=== PATIENT | female | born 1955 | race Caucasian/White ===

== ENCOUNTER 2018-07-16 19:38 | Emergency (ER) | END 2018-07-16 23:50 | disposition home or self-care (01) ==

== ENCOUNTER 2018-10-17 11:49 | Emergency (ER) | payer BC, MEDICAID ==
[~2018-10-17] VITALS: Ht 154.9 cm; Wt 88.0 kg
[~2018-10-17 11:49] MED LIST: ADV25050 INHALATION; ASPI-903 PO; ATEN100T PO; HYDR-3980 PO; HYDR-4011 PO; LEVO25TA6 PO; LOSA25TA2 PO; ONDA4TAB14 PO
[2018-10-17 11:53] VITALS: Ht 154.9 cm; Wt 88.0 kg
[2018-10-17] MEDS ORDERED: HYDROmorphONE 1 MG/ML SYG IV STA (13:02)
[2018-10-17] MEDS ORDERED: ONDANSETRON 4 MG INJ IV STA (13:02)
--- NOTE | 2018-10-17 13:24 | ERD ---
ER Documentation Chief Complaint Chief Complaint ruq pain with radiaiting pain to the back since last night HPI This is 63-year-old female who has a history of liver cirrhosis and pancreatic cyst with gallbladder removal complaining of right upper quadrant pain for 1 day that is exactly like prior gallstone pain. The pain is dull and occurs after eating and radiates to the right back. No chest pain or shortness of breath no nausea vomiting diarrhea. ROS All systems reviewed and are negative except as per history of present illness. Medications Home Meds Reported Medications Glimepiride* (Glimepiride*) 2 Mg Tablet, 2 MG PO WITH BREAKFAST, TAB 10/17/18 Amlodipine Besylate* (Norvasc*) 5 Mg Tablet, 5 MG PO DAILY, TAB 10/17/18 Propranolol Hcl* (Propranolol Hcl*) 20 Mg Tablet, 20 MG PO BID, TAB 10/17/18 Discontinued Reported Medications Atenolol* (Atenolol*) 100 Mg Tablet, 100 MG PO DAILY, TAB 08/09/14 Levothyroxine Sodium* (Levothyroxine Sodium*) 25 Mcg Tablet, 25 MCG PO DAILY, TAB 08/09/14 Discontinued Scripts Ondansetron (Ondansetron Odt) 4 Mg Tab.rapdis, 4 MG PO Q6H PRN for NAUSEA AND/OR VOMITING, #10 TAB Prov:EMELIA BUTTS MD 07/16/18 Hydrocodone/Acetaminophen ([place] 10-325 Tablet) 1 Each Tablet, 1 TAB PO Q6H PRN for PAIN, #7 TAB Prov:EMELIA BUTTS MD 07/16/18 Salmeterol Xinaf/Fluticasone* (Advair*) 250-50 Diskus Inhaler, 1 INH INHALATION BID, #1 INHALER Prov:BENITEZ VALVERDE [employer] 04/23/16 Hydrocodone/Acetaminophen ([place] 5-325 Tablet) 1 Each Tablet, 1 EACH PO Q4H for PAIN, #30 TAB Prov:BENITEZ VALVERDE [employer] 04/23/16 Aspirin* (Aspirin* Chew) 81 Mg Tab.chew, 81 MG PO DAILY for 30 Days, TAB.CHEW Prov:BENITEZ VALVERDE [employer] 04/23/16 Losartan Potassium* (Cozaar*) 25 Mg Tablet, 25 MG PO BID for 30 Days, TAB Prov:BENITEZ VALVERDE V. SONIA 04/23/16 Allergies Allergies: Coded Allergies: No Known Allergy (Unverified , 10/17/18) PMhx/Soc Anesthesia Reaction: No Hx Neurological Disorder: No Hx Respiratory Disorders: No Hx Cardiac Disorders: Yes (HTN) Hx Psychiatric Problems: No Hx Miscellaneous Medical Probl: Yes (THYROID) Hx Alcohol Use: No Hx Substance Use: No Hx Tobacco Use: No FmHx Family History: No coronary disease Physical Exam Vitals Vital Signs Date Temp Pulse Resp B/P (MAP) Pulse Ox O2 O2 Flow FiO2 Time Delivery Rate 10/17/18 69 12 103/60 97 Room Air 15:13 (74) 10/17/18 98.2 82 18 139/69 99 Room Air 13:10 (92) 10/17/18 98.6 99 18 174/84 99 11:53 (114) Physical Exam Const: Well-developed, well-nourished Head: Atraumatic, normocephalic Eyes: Normal Conjunctiva, PERRLA, EOMI, normal sclera, no nystagmus ENT: Normal External Ears, Nose and Mouth, moist mucus membranes. Neck: Full range of motion. No meningismus, no lymphadenopathy. Resp: Clear to auscultation bilaterally, no wheezing, rhonchi, rales Cardio: Regular rate and rhythm, no murmurs, S1 S2 present Abd: Soft, moderate right upper quadrant tenderness non distended. Normal bowel sounds, no guarding or rebound, no pulsitile abdominal masses or bruits Skin: No petechiae or rashes, no ecchymosis , no maculopapular rash Back: No midline or flank tenderness Ext: No cyanosis, or edema, FROM x 4, normal inspection, neurovascularly intact x 4 Neur: Awake and alert, STR 5/5 x 4, sensation intact x 4, no focal findings, cerebellum intact Psych: Normal Mood and Affect Result Diagram: 10/17/18 1311 10/17/18 1311 Results 24 hrs Laboratory Tests Test 10/17/18 13:11 White Blood Count 4.9 10^3/ul Red Blood Count 4.33 10^6/ul Hemoglobin 13.5 g/dl Hematocrit 40.2 % Mean Corpuscular Volume 92.8 fl Mean Corpuscular Hemoglobin 31.2 pg Mean Corpuscular Hemoglobin Concent 33.6 g/dl Red Cell Distribution Width 13.8 % Platelet Count 70 10^3/UL Mean Platelet Volume 11.6 fl Immature Granulocytes % 0.400 % Neutrophils % 49.8 % Lymphocytes % 37.7 % Monocytes % 9.5 % Eosinophils % 1.8 % Basophils % 0.8 % Nucleated Red Blood Cells % 0.0 /100WBC Immature Granulocytes # 0.020 10^3/ul Neutrophils # 2.5 10^3/ul Lymphocytes # 1.9 10^3/ul Monocytes # 0.5 10^3/ul Eosinophils # 0.1 10^3/ul Basophils # 0.0 10^3/ul Nucleated Red Blood Cells # 0.0 10^3/ul Sodium Level 144 mmol/L Potassium Level 3.7 mmol/L Chloride Level 107 mmol/L Carbon Dioxide Level 27 mmol/L Anion Gap 10 Blood Urea Nitrogen 11 mg/dl Creatinine 0.66 mg/dl Est Glomerular Filtrat Rate mL/min > 60 mL/min Glucose Level 93 mg/dl Calcium Level 9.2 mg/dl Total Bilirubin 0.5 mg/dl Direct Bilirubin 0.00 mg/dl Indirect Bilirubin 0.5 mg/dl Aspartate Amino Transf (AST/SGOT) 63 IU/L Alanine Aminotransferase (ALT/SGPT) 50 IU/L Alkaline Phosphatase 94 IU/L Total Protein 8.8 g/dl Albumin 4.1 g/dl Globulin 4.70 g/dl Albumin/Globulin Ratio 0.87 Lipase 330 U/L Current Medications Medications Dose Sig/Mel Start Time Status Last (Trade) Ordered Route PRN Stop Time Admin Dose Reason Admin 1 mg ONCE STAT 10/17/18 DC 10/17/18 Hydromorphone IV 13:02 10/17/18 13:08 HCl 13:04 (Dilaudid) Ondansetron 4 mg ONCE STAT 10/17/18 DC 10/17/18 HCl (Zofran IV 13:02 10/17/18 13:08 Inj) 13:04 Procedures/MDM Ordering MD: JOHAN PIMENTEL DO Location: E/R Room/Bed: PROCEDURE: US Abdomen. CLINICAL INDICATION: abdominal pain TECHNIQUE: Multiple real-time images were acquired of the patient's right upper quadrant abdomen and retroperitoneum utilizing a high resolution transducer. COMPARISON: CT 07/16/2018; US ABDOMEN 04/20/2016 FINDINGS: The study is limited due to the patient's body habitus. The liver demonstrates heterogeneous and coarse echogenicity. The liver is nodular in contour. The liver is normal in size and no focal solid lesions are seen. The liver measures 14 cm in length. The portal vein is patent with normal direction of flow. No intrahepatic biliary dilatation is seen. The patient is status post cholecystectomy. The common bile duct measures 9 mm in maximal dimension. The visualized portions of the pancreas are unremarkable. The tail of the pancreas is not seen. No free fluid is identified. The right kidney is normal in size, and demonstrate normal echogenicity and cortical thickness. The right kidney measures 9.9 cm in long dimension. There is no evidence of hydronephrosis. There are no kidney stones. RPTAT: AA IMPRESSION: Liver cirrhosis. Status post cholecystectomy. Dilated CBD. .Jhony Melissa MD, MD Date Time Electronically viewed and signed by .Jhony Melissa MD, MD on 10/17/2018 14:21 .S/ CC: JOHAN PIMENTEL DO [id number] The patient has stable blood work and ultrasound does not show any intra-hepatic ductal dilation. The patient states her pain is like her gallbladder pain she may have had a retained stone or biliary tree spasm. The patient is feeling better now. I will discharge her home with some [place] and [place]. If she gets worse she will return. Patient feels much better at this time, and vital signs are normal, symptoms have improved. I did give strict instructions to return to the ED if symptoms continue or worsen, patient will otherwise follow-up with primary care physic maria elena. Patient understood instructions and agreed to plan. Disclaimer: Inadvertent spelling and grammatical errors are likely due to EHR/dictation software use and do not reflect on the overall quality of patient care. Also, please note that the electronic time recorded on this note does not necessarily reflect the actual time of the patient encounter. Departure Diagnosis: Primary Impression: Abdominal pain Abdominal location: right upper quadrant Qualified Codes: R10.11 - Right upper quadrant pain Additional Impression: Biliary colic Condition: Stable JOHAN PIMENTEL DO Oct 17, 2018 13:24
[2018-10-17] MEDS ORDERED: PROP20TA4 PO (16:05)
[2018-10-17] MEDS ORDERED: AMLO5TAB4 PO (16:06)
[2018-10-17] MEDS ORDERED: GLIM2TAB PO (16:06)
[2018-10-17] MEDS ORDERED: HYDR-3980 PO (16:29)
[2018-10-17] MEDS ORDERED: DICY10CA40 PO (16:29)
[2018-10-17 16:48] VITALS: BP 99/52; PULSE 71; RESP 15
== END 2018-10-17 16:44 | disposition home or self-care (01) ==
LOC: E/R 11:49
DX: K80.50 Calculus of bile duct without cholangitis or cholecystitis without obstruction (principal); I10 Essential (primary) hypertension
CPT/HCPCS: 36415; 76705; 80053; 83690; 85025; 96374; 96375; 99285; J1170; J2405

== ENCOUNTER 2018-12-09 07:47 | Emergency (ER) | payer OTHER ==
[~2018-12-09] VITALS: Ht 157.5 cm; Wt 88.5 kg
[~2018-12-09 07:47] MED LIST changes: -ADV25050 INHALATION; +AMLO5TAB4 PO; -ASPI-903 PO; -ATEN100T PO; +DICY10CA40 PO; +GLIM2TAB PO; -HYDR-4011 PO; -LEVO25TA6 PO; -LOSA25TA2 PO; -ONDA4TAB14 PO; +PROP20TA4 PO
[2018-12-09 07:53] VITALS: Ht 157.5 cm; Wt 88.5 kg
[2018-12-09] MEDS ORDERED: ONDANSETRON (ODT) 4 MG TAB ODT STA (09:17)
[2018-12-09] MEDS ORDERED: KETOROLAC 30 MG INJ IM STA (09:17)
[2018-12-09] MEDS ORDERED: ONDA4TAB8 PO (09:19)
[2018-12-09] MEDS ORDERED: IBUP-1542 PO (09:19)
[2018-12-09 10:35] VITALS: BP 127/77; PULSE 72; RESP 19
--- NOTE | 2018-12-09 12:36 | ERD ---
ER Documentation Chief Complaint Chief Complaint FEVER , COUGH , SORE THROAT , HEADACHE X 3 DAYS HPI 63-year-old woman complains of nasal congestion, rhinorrhea, sore throat, mild cough, headaches x3 days. She has had some nausea as well but no vomiting or diarrhea, no chest pain or shortness of breath, no dysuria or increased urinary frequency. ROS All systems reviewed and are negative except as per history of present illness. Medications Home Meds Active Scripts Ondansetron Hcl* (Zofran*) 4 Mg Tablet, 4 MG PO Q8H PRN for NAUSEA AND/OR VOMITING, #30 TAB Prov:CELIA HOLLAND MD 12/09/18 Ibuprofen* (Motrin*) 600 Mg Tab, 600 MG PO Q8 PRN for PAIN AND/OR INFLAMMATION, #30 TAB Prov:CELIA HOLLAND MD 12/09/18 Hydrocodone/Acetaminophen ([place] 10-325 Tablet) 1 Each Tablet, 1 TAB PO Q6H PRN for PAIN, #9 TAB Prov:JOHAN PIMENTEL DO 10/17/18 Dicyclomine HCl (Dicyclomine HCl) 10 Mg Capsule, 20 MG PO TID PRN for ABDOMINAL CRAMPING, #20 CAP Prov:JOHAN PIMENTEL DO 10/17/18 Reported Medications Glimepiride* (Glimepiride*) 2 Mg Tablet, 2 MG PO WITH BREAKFAST, TAB 10/17/18 Amlodipine Besylate* (Norvasc*) 5 Mg Tablet, 5 MG PO DAILY, TAB 10/17/18 Propranolol Hcl* (Propranolol Hcl*) 20 Mg Tablet, 20 MG PO BID, TAB 10/17/18 Allergies Allergies: Coded Allergies: No Known Allergy (Unverified , 10/17/18) PMhx/Soc Hypertension, diabetes mellitus Anesthesia Reaction: No Hx Neurological Disorder: No Hx Respiratory Disorders: No Hx Cardiac Disorders: Yes (HTN) Hx Psychiatric Problems: No Hx Miscellaneous Medical Probl: Yes (THYROID, liver cirrhosis, pancreatic cyst) Hx Alcohol Use: No Hx Substance Use: No Hx Tobacco Use: No Smoking Status: Never smoker FmHx Family History: diabetes Physical Exam Vitals Vital Signs Date Temp Pulse Resp B/P (MAP) Pulse Ox O2 O2 Flow FiO2 Time Delivery Rate 12/09/18 98.1 72 19 127/77 99 Room Air 10:35 (94) 12/09/18 98.6 75 18 128/74 97 07:53 (92) Physical Exam GENERAL: Well-developed, well-nourished, well-hydrated, in no apparent distress, looks nontoxic in appearance HEENT: Moist mucous membranes, pink conjunctiva, positive nasal congestion, NEURO: Alert and oriented 3, cranial nerves II through XII intact bilaterally, pupils equal round reactive to light, no focal deficits or facial asymmetry, sensation intact distally Strength 5/5 in upper and lower extremities bilaterally CARDIAC: Regular rate and rhythm, no murmurs rubs or gallops LUNGS: Clear bilaterally no wheezing crackles or stridor ABDOMEN: Soft nontender, no guarding, no rigidity, no rebound, no psoas sign no obturator sign. EXTREMITIES: No clubbing cyanosis or edema, calves are bilaterally symmetrical, no Homans sign, no popliteal cord sign. Distal pulses equal and bilateral PSYCH: Normal affect without agitation or irritability Results 24 hrs Current Medications Medications Dose Sig/Mel Start Time Status Last (Trade) Ordered Route PRN Stop Time Admin Dose Reason Admin Ketorolac 30 mg ONCE STAT 12/09/18 DC 12/09/18 Tromethamine IM 09:17 09:26 (Toradol) 12/09/18 09:18 Ondansetron 4 mg ONCE STAT 12/09/18 DC 12/09/18 HCl (Zofran ODT 09:17 09:25 Odt) 12/09/18 09:18 Procedures/MDM I administered Toradol 30 mg IM x1 and Zofran 4 mg p.o. for her symptoms. Patient has normal vital signs and looks well, I suspect viral URI and will discharge her with prescriptions and recommended follow-up with PMD. Differential diagnoses considered, included but not limited to acute coronary syndrome, pulmonary embolism, aortic dissection, abdominal aortic aneurysm, s epsis, stroke, meningitis, encephalitis, pneumonia, appendicitis, cholecystitis, bowel obstruction, pyelonephritis, nephrolithiasis, cystitis, as well as metabolic, hematologic, and electrolyte abnormalities. As well as abscess, cellulitis, fractures, and dislocations. Patient feels much better at this time, and vital signs are normal, symptoms have improved. I did give strict instructions to return to the ED if symptoms continue or worsen, patient will otherwise follow-up with primary care physician. Patient understood instructions and agreed to plan. Disclaimer: Inadvertent spelling and grammatical errors are likely due to EHR/d ictation software use and do not reflect on the overall quality of patient care. Also, please note that the electronic time recorded on this note does not necessarily reflect the actual time of the patient encounter. Departure Diagnosis: Primary Impression: Viral URI Condition: Good Patient Instructions: Uri, Viral, No Abx (Adult) CELIA HOLLAND MD Dec 09, 2018 12:36
== END 2018-12-09 10:36 | disposition home or self-care (01) ==
LOC: FTE 07:47
DX: J06.9 Acute upper respiratory infection, unspecified (principal); I10 Essential (primary) hypertension; E11.9 Type 2 diabetes mellitus without complications; Z79.84 Long term (current) use of oral hypoglycemic drugs
CPT/HCPCS: 96372; 99284; J1885

== ENCOUNTER 2019-03-24 06:56 | Observation (INO) | payer OTHER ==
[~2019-03-24] VITALS: Ht 154.9 cm; Wt 92.0 kg
[~2019-03-24 06:56] MED LIST changes: +ACET325T33 PO; +ASPI81TA50 PO; +GLIM4TAB PO; +IBUP-1542 PO; +LIOT5TAB3 PO; +LISI-313 PO; +ONDA4TAB8 PO; +POTA20TA96 PO
--- NOTE | 2019-03-24 07:14 | ERD ---
ER Documentation Chief Complaint Chief Complaint cwp, left arm/shoulder pain intermittent since yesterday HPI 63-year-old female history of hypertension. Last cardiac risk stratification was 3 years ago which was negative at the time. Is presenting with 24 hours of chest pain radiating to her arm that began at rest. Pain has been constant symptoms have not been exacerbated by exertion. She does not have any shortness of breath, nausea, vomiting, diarrhea, abdominal discomfort. No recent infections, no dysuria. No respiratory symptoms. Has been compliant with her medications. ROS All systems reviewed and are negative except as per history of present illness. Medications Home Meds Active Scripts Ondansetron Hcl* (Zofran*) 4 Mg Tablet, 4 MG PO Q8H PRN for NAUSEA AND/OR VOMITING, #30 TAB Prov:CELIA HOLLAND MD 12/09/18 Ibuprofen* (Motrin*) 600 Mg Tab, 600 MG PO Q8 PRN for PAIN AND/OR INFLAMMATION, #30 TAB Prov:CELIA HOLLAND MD 12/09/18 Hydrocodone/Acetaminophen ([place] 10-325 Tablet) 1 Each Tablet, 1 TAB PO Q6H PRN for PAIN, #9 TAB Prov:JOHAN PIMENTEL DO 10/17/18 Dicyclomine HCl (Dicyclomine HCl) 10 Mg Capsule, 20 MG PO TID PRN for ABDOMINAL CRAMPING, #20 CAP Prov:JOHAN PIMENTEL DO 10/17/18 Reported Medications Glimepiride* (Glimepiride*) 2 Mg Tablet, 2 MG PO WITH BREAKFAST, TAB 10/17/18 Amlodipine Besylate* (Norvasc*) 5 Mg Tablet, 5 MG PO DAILY, TAB 10/17/18 Propranolol Hcl* (Propranolol Hcl*) 20 Mg Tablet, 20 MG PO BID, TAB 10/17/18 Allergies Allergies: Coded Allergies: No Known Allergy (Unverified , 10/17/18) PMhx/Soc Anesthesia Reaction: No Hx Neurological Disorder: No Hx Respiratory Disorders: No Hx Cardiac Disorders: Yes (HTN) Hx Psychiatric Problems: No Hx Miscellaneous Medical Probl: Yes (THYROID, liver cirrhosis, pancreatic cyst) Hx Alcohol Use: No Hx Substance Use: No Hx Tobacco Use: No Physical Exam Vitals Vital Signs Date Temp Pulse Resp B/P (MAP) Pulse Ox O2 O2 Flow FiO2 Time Delivery Rate 03/24/19 Nasal 07:36 Cannula 03/24/19 98.0 70 18 162/74 99 06:59 (103) Physical Exam Const: Well-appearing Head: Atraumatic Eyes: Normal Conjunctiva ENT: Normal External Ears, Nose and Mouth. Neck: Full range of motion. No meningismus. Resp: Clear to auscultation bilaterally Cardio: Regular rate and rhythm, no murmurs Abd: Soft, non tender, non distended. Normal bowel sounds Skin: No petechiae or rashes Back: No midline or flank tenderness Ext: No cyanosis, or edema Neur: Awake and alert Psych: Normal Mood and Affect Result Diagram: 03/24/1972603/24/19726 Results 24 hrs Laboratory Tests Test 03/24/19 07:27 White Blood Count 6.4 10^3/ul Red Blood Count 4.39 10^6/ul Hemoglobin 13.5 g/dl Hematocrit 41.3 % Mean Corpuscular Volume 94.1 fl Mean Corpuscular Hemoglobin 30.8 pg Mean Corpuscular Hemoglobin Concent 32.7 g/dl Red Cell Distribution Width 13.9 % Platelet Count 80 10^3/UL Mean Platelet Volume 10.3 fl Immature Granulocytes % 0.500 % Neutrophils % 54.5 % Lymphocytes % 32.1 % Monocytes % 9.6 % Eosinophils % 2.5 % Basophils % 0.8 % Nucleated Red Blood Cells % 0.0 /100WBC Immature Granulocytes # 0.030 10^3/ul Neutrophils # 3.5 10^3/ul Lymphocytes # 2.0 10^3/ul Monocytes # 0.6 10^3/ul Eosinophils # 0.2 10^3/ul Basophils # 0.1 10^3/ul Nucleated Red Blood Cells # 0.0 10^3/ul Sodium Level 142 mmol/L Potassium Level 4.0 mmol/L Chloride Level 108 mmol/L Carbon Dioxide Level 28 mmol/L Anion Gap 6 Blood Urea Nitrogen 18 mg/dl Creatinine 0.58 mg/dl Est Glomerular Filtrat Rate mL/min > 60 mL/min Glucose Level 150 mg/dl Calcium Level 9.2 mg/dl Total Bilirubin 0.9 mg/dl Direct Bilirubin 0.00 mg/dl Indirect Bilirubin 0.9 mg/dl Aspartate Amino Transf (AST/SGOT) 49 IU/L Alanine Aminotransferase (ALT/SGPT) 46 IU/L Alkaline Phosphatase 89 IU/L Troponin I < 0.012 ng/ml Total Protein 8.3 g/dl Albumin 3.9 g/dl Globulin 4.40 g/dl Albumin/Globulin Ratio 0.88 Lipase 262 U/L Current Medications Medications Dose Sig/Mel Start Time Status Last (Trade) Ordered Route PRN Stop Time Admin Dose Reason Admin Aspirin 325 mg ONCE STAT 03/24/19 DC 03/24/19 (Aspirin) PO 07:19 07:37 03/24/19 07:20 1 tab Q5M UP TO 3 03/24/19 03/24/19 Nitroglycerin DOSES PRN 07:30 07:37 SL .CHEST (Nitroglyceri PAIN n (Sl Tab) 0.4 Mg) Procedures/MDM 12 lead ECG Time: 704 Rate/Rhythm: Normal Sinus Rhythm at a rate of [66] beats per minute QRS, ST, T-waves: No changes consistent w/ acute ischemia. There is biphasic T waves in leads III and aVF. T wave inversions in leads V2 through V6 these were seen on EKG from 2016 however are now deeper Impression: No evidence of acute ischemia or arrhythmia Chest X-ray 1V Interpreted by me: Soft Tissue: No acute abnormalities Bones: No acute abnormalities Mediastinum/Cardiac Silhouette/Lungs: No acute abnormalities Impression: Normal Chest X-Ray CBC: no evidence of clinically significant leukopenia, leukocytosis, anemia, or thrombocytosis. Does have chronic thrombocytopenia CMP: no evidence of clinically significant acidosis, alkalosis, renal dysfunction, diabetic ketoacidosis, acute liver disease or electrolyte imbalance Lipase: patient's lipase is normal and no indication of pancreatic dysfunction or pancreatitis Troponin: no evidence of acute myocardial injury The patient presents with chest pain and I considered pulmonary embolism, aortic dissection, pneumothorax among other diagnoses. Evaluation for acute coronary syndrome was performed. The HEART score was utilized for risk stratification and found to be 5. Given last cardiac risk stratification was 3 years ago and patient's T wave inversions have worsens we will admit for cardiac risk stratification. Patient is stable. Departure Diagnosis: Primary Impression: CHEST PAIN, UNSPECIFIED Additional Impression: Thrombocytopenia Condition: Stable LAUREL HARRIS MD Mar 24, 2019 07:14
[2019-03-24] MEDS ORDERED: ASPIRIN 325 MG TAB PO STA (07:19)
[2019-03-24] MEDS: NITROGLYCERIN (SL) 0.4 MG TAB SL PRN ×2 (07:37→19:57)
[2019-03-24] MEDS ORDERED: ACETAMINOPHEN 325 MG TAB PO PRN ×2 (09:00)
[2019-03-24] MEDS ORDERED: ONDANSETRON 4 MG INJ IV PRN ×2 (09:00)
[2019-03-24] MEDS ORDERED: BISACODYL (EC) 5 MG TAB PO PRN (09:00)
[2019-03-24] MEDS ORDERED: ZOLPIDEM 5 MG TAB PO PRN (09:00)
[2019-03-24] MEDS ORDERED: DOCUSATE SODIUM 100 MG CAP PO PRN (09:00)
[2019-03-24] MEDS ORDERED: NACL 0.9% 3 ML SYG IV SCH (09:00)
[2019-03-24] MEDS ORDERED: HYDROCODONE/APAP (5/325) TAB PO PRN (09:00)
[2019-03-24] MEDS: FAMOTIDINE 20 MG INJ IV SCH ×2 (09:07→20:22)
[2019-03-24] MEDS: ENOXAPARIN 40 MG/0.4 ML SYG SC SCH (09:08)
[2019-03-24 11:55] VITALS: BP 164/88; PULSE 62
[2019-03-24] MEDS: morphine 2 MG INJ IV PRN (12:05)
[2019-03-24 13:52] VITALS: Ht 154.9 cm; Wt 92.0 kg
[2019-03-24 15:52] VITALS: BP 137/79; PULSE 60; RESP 18
--- NOTE | 2019-03-24 18:36 | HP ---
Date/Time of Note Date/Time of Note DATE: 03/24/19 TIME: 18:35 Assessment/Plan VTE Prophylaxis SCD contraindicated: low risk/ambulating Pharmacological prophylaxis: LMWH Lines/Catheters IV Catheter Type (from Nrsg): Peripheral IV Assessment/Plan Hospital Course Chief complaint Chest pain History present illness 63-year-old female who lives at home was in her usual state of health and had an insidious onset of chest pain at rest. Stated symptoms of numbness of her left fingers/arm. No known aggravating or relieving factors. The pain may have lasted for a few hours. Denies any chest wall injury recent travel or fever. They have had similar pain many years ago. Stress test negative about 3 4 years ago. Cardiac risk factors: Diabetes hypertension metabolic syndrome history of stress test. Possible abnormal EKG ER: Stable vital signs, concern for generalized T wave changes Medical history Diabetes Hypertension. Cardiac stress test negative about 4 years ago. Metabolic syndrome [place]? Cirrhosis? Arrhythmia? Cholecystitis Past surgical history Gallbladder Social history No active tobacco or alcohol Family history There is no family history of early coronary artery disease, cancer or stroke that I am aware of Home medications Pending Review of systems Neuro: No loss speech headache vision Cardiovascular: Chest pain no dyspnea, possible edema lungs: No cough wheezing or fever Abdomen: No pain nausea vomiting Genitourinary: No dysuria hematuria abdominal pain Muscle skeletal: Minimal gait dysfunction no rash no itching she has some discomfort of her right thigh Constitutional: No fevers no chills no weight loss that I am aware of Hematologic: No hematochezia melena hematuria Endocrine: Positive diabetes dyslipidemia metabolic syndrome, no previous thyroid dysfunction Psychiatry: Patient has a stable mood advancing agitation anxiety depression Examination No pallor adenopathy JVD Regular no murmur gallop Clear, mild reproducible tenderness lower sternum no tachypnea Bowel sounds present nontender nondistended no rigidity or guarding. Overweight no abdominal bruits No edema negative Homans Assessment and plan 1. Chest pain abnormal EKG to rule out ACS. stAble, may need stress test tomorrow. 2. Chronic type 2 diabetes 3. Chronic essential hypertension 4. Obesity disorder, STEPHANIE risk consider outpatient testing 5. Possible early cirrhosis/[place] related 6. Possible history of arrhythmia Result Diagram: 03/24/1972603/24/19726 Results 24hrs Laboratory Tests Test 03/24/19 07:27 03/24/19 13:20 White Blood Count 6.4 # Red Blood Count 4.39 Hemoglobin 13.5 Hematocrit 41.3 Mean Corpuscular Volume 94.1 Mean Corpuscular Hemoglobin 30.8 Mean Corpuscular Hemoglobin Concent 32.7 Red Cell Distribution Width 13.9 Platelet Count 80 L Mean Platelet Volume 10.3 Immature Granulocytes % 0.500 H Neutrophils % 54.5 Lymphocytes % 32.1 Monocytes % 9.6 Eosinophils % 2.5 Basophils % 0.8 Nucleated Red Blood Cells % 0.0 Immature Granulocytes # 0.030 Neutrophils # 3.5 Lymphocytes # 2.0 Monocytes # 0.6 Eosinophils # 0.2 Basophils # 0.1 Nucleated Red Blood Cells # 0.0 Prothrombin Time 14.1 Prothrombin Time Ratio 1.1 INR International Normalized Ratio 1.08 Sodium Level 142 Potassium Level 4.0 Chloride Level 108 Carbon Dioxide Level 28 Anion Gap 6 Blood Urea Nitrogen 18 Creatinine 0.58 Est Glomerular Filtrat Rate mL/min > 60 Glucose Level 150 Calcium Level 9.2 Total Bilirubin 0.9 Direct Bilirubin 0.00 Indirect Bilirubin 0.9 Aspartate Amino Transf (AST/SGOT) 49 H Alanine Aminotransferase (ALT/SGPT) 46 Alkaline Phosphatase 89 Troponin I < 0.012 < 0.012 Total Protein 8.3 H Albumin 3.9 Globulin 4.40 H Albumin/Globulin Ratio 0.88 Lipase 262 Creatine Kinase 70 Creatine Kinase Index 0.8 Creatinine Kinase MB (Mass) 0.57 HPI/ROS Admit Date/Time Admit Date/Time Mar 24, 2019 at 10:12 PMH/Family/Social Past Medical History Medications Current Medications Nitroglycerin (Nitroglycerin (Sl Tab) 0.4 Mg) 1 tab Q5M UP TO 3 DOSES PRN SL .CHEST PAIN Last administered on 03/24/19at 07:37; Admin Dose 1 TAB; Start 03/24/19 at 07:30 Ondansetron HCl (Zofran Inj) 4 mg ER BRIDGE PRN IV NAUSEA/VOMITING; Start 03/24/19 at 09:00; Stop 03/25/19 at 08:59 Acetaminophen (Tylenol Tab) 650 mg ER BRIDGE PRN PO .MILD PAIN 1-3 OR TEMP; Start 03/24/19 at 09:00; Stop 03/25/19 at 08:59 IV Flush (NS 3 ml) 3 ml PER PROTOCOL IV ; Start 03/24/19 at 09:00 Ondansetron HCl (Zofran Inj) 4 mg Q6H PRN IV NAUSEA/VOMITING; Start 03/24/19 at 09:00 Acetaminophen (Tylenol Tab) 650 mg Q6H PRN PO .PAIN 1-3 OR TEMP; Start 03/24/19 at 09:00 Acetaminophen/ Hydrocodone Bitart ([place] (5/325)) 1 tab Q6H PRN PO .MOD PAIN 4- 6; Start 03/24/19 at 09:00 Morphine Sulfate (morphine) 2 mg Q4H PRN IV .SEVERE PAIN 7-10 Last administered on 03/24/19at 12:05; Admin Dose 2 MG; Start 03/24/19 at 09:00 Docusate Sodium (Colace) 100 mg Q12H PRN PO .CONSTIPATION; Start 03/24/19 at 09:00 Bisacodyl (Dulcolax) 5 mg DAILY PRN PO .CONSTIPATION; Start 03/24/19 at 09:00 Zolpidem Tartrate (Ambien) 5 mg QHS PRN PO .INSOMNIA; Start 03/24/19 at 09:00 Famotidine (Pepcid Iv) 20 mg Q12 IV Last administered on 03/24/19at 09:07; Admin Dose 20 MG; Start 03/24/19 at 09:00 Enoxaparin Sodium (Lovenox) 40 mg DAILY SC Last administered on 03/24/19at 09:08; Admin Dose 40 MG; Start 03/24/19 at 09:00 Coded Allergies: No Known Allergy (Unverified , 10/17/18) Family History Significant Family History: no pertinent family hx Social History Smoking Status: Never smoker Exam/Review of Systems Vital Signs Vitals Vital Signs Date Temp Pulse Resp B/P (MAP) Pulse Ox O2 O2 Flow FiO2 Time Delivery Rate 03/24/19 98.1 60 18 137/79 100 Nasal 2.0 15:52 (98) Cannula NIR AVILES MD Mar 24, 2019 18:36
[2019-03-24 19:09] VITALS: BP 154/74; PULSE 64; RESP 18
[2019-03-24 23:01] VITALS: BP 140/73; PULSE 64; RESP 18
[2019-03-25] MEDS: morphine 2 MG INJ IV PRN (01:51)
[2019-03-25 03:12] VITALS: BP 128/87; PULSE 67; RESP 18
[2019-03-25 07:09] VITALS: BP 137/76; PULSE 62; RESP 18
[2019-03-25] MEDS ORDERED: ASPIRIN (EC) 81 MG TAB PO SCH (09:00)
[2019-03-25] MEDS ORDERED: REGADENOSON 0.4 MG/5 ML SYG ONE (09:14)
--- NOTE | 2019-03-25 10:14 | CONS ---
Assessment/Plan Assessment/Plan Hospital Course (Demo Recall) Chest pain/left arm pain/hand numbness: Symptoms appear to be more radiculopathy related and may represent cervical angina. Troponins have been negative and her EKG shows LVH with the same diffuse TW inversions as seen on EKG from 2016. Lexiscan this am is pending Abnormal EKG: LVH with anterolateral TWI and inferior biphasic TWs seen on EKG 2016.Likely from LVH DM HTN -await MPI. If negative can consider cervical spine imaging. If positive, may n eed further coronary evaluation such as cardiac CTA to confirm as clinically her symptoms are not consistent with angina -continue ASA, lipitor -home amlodipine. Could consider switching to ACEI with h/o DM Consultation Date/Type/Reason Admit Date/Time Mar 24, 2019 at 10:12 Date of Consultation: Mar 25, 2019 Type of Consult Cardiology Reason for Consultation Chest pain Requesting Provider: NIR AVILES MD Date/Time of Note DATE: 03/25/19 TIME: 10:08 Hx of Present Illness 63 yo F with a h/o DM, HTN, who presented with chest/arm pain and left hand numbness. She was hospitalized in 2016 for similar complaints and noted to have an abnormal EKG with normal stress test at that time. Her pain is constant and mild and she still has left hand tingling/numbness.A Lexiscan was ordered by the admitting physician and has been completed this am. per hPI Past Medical History per HPI Home Meds Active Scripts Ondansetron Hcl* (Zofran*) 4 Mg Tablet, 4 MG PO Q8H PRN for NAUSEA AND/OR VOMI TING, #30 TAB Prov:CELIA HOLLAND MD 12/09/18 Ibuprofen* (Motrin*) 600 Mg Tab, 600 MG PO Q8 PRN for PAIN AND/OR INFLAMMATION, #30 TAB Prov:CELIA HOLLAND MD 12/09/18 Dicyclomine HCl (Dicyclomine HCl) 10 Mg Capsule, 20 MG PO TID PRN for ABDOMINAL CRAMPING, #20 CAP Prov:JOHAN PIMENTEL DO 10/17/18 Reported Medications Liothyronine Sodium* (Cytomel*) 5 Mcg Tablet, 10 MCG PO DAILY, TAB 03/24/19 Aspirin (Aspir-Low) 81 Mg Tablet.dr, 81 MG PO DAILY 03/24/19 Glimepiride* (Glimepiride*) 4 Mg Tablet, 4 MG PO BID, TAB 03/24/19 Potassium Chloride* (Potassium Chloride*) 20 Meq Tablet.er, 20 MEQ PO DAILY, TAB.SA 03/24/19 Amlodipine Besylate* (Norvasc*) 5 Mg Tablet, 5 MG PO DAILY, TAB 10/17/18 Propranolol Hcl* (Propranolol Hcl*) 20 Mg Tablet, 20 MG PO BID, TAB 10/17/18 Discontinued Reported Medications Glimepiride* (Glimepiride*) 2 Mg Tablet, 2 MG PO WITH BREAKFAST, TAB 10/17/18 Discontinued Scripts Hydrocodone/Acetaminophen ([place] 10-325 Tablet) 1 Each Tablet, 1 TAB PO Q6H PRN for PAIN, #9 TAB Prov:JOHAN PIMENTEL DO 10/17/18 Medications Current Medications Nitroglycerin (Nitroglycerin (Sl Tab) 0.4 Mg) 1 tab Q5M UP TO 3 DOSES PRN SL .CHEST PAIN Last administered on 03/24/19at 19:57; Admin Dose 1 TAB; Start 03/24/19 at 07:30 IV Flush (NS 3 ml) 3 ml PER PROTOCOL IV ; Start 03/24/19 at 09:00 Ondansetron HCl (Zofran Inj) 4 mg Q6H PRN IV NAUSEA/VOMITING; Start 03/24/19 at 09:00 Acetaminophen (Tylenol Tab) 650 mg Q6H PRN PO .PAIN 1-3 OR TEMP Last administered on 03/24/19at 19:58; Admin Dose 650 MG; Start 03/24/19 at 09:00 Acetaminophen/ Hydrocodone Bitart ([place] (5/325)) 1 tab Q6H PRN PO .MOD PAIN 4- 6; Start 03/24/19 at 09:00 Morphine Sulfate (morphine) 2 mg Q4H PRN IV .SEVERE PAIN 7-10 Last administered on 03/25/19at 01:51; Admin Dose 2 MG; Start 03/24/19 at 09:00 Docusate Sodium (Colace) 100 mg Q12H PRN PO .CONSTIPATION; Start 03/24/19 at 09:00 Bisacodyl (Dulcolax) 5 mg DAILY PRN PO .CONSTIPATION; Start 03/24/19 at 09:00 Zolpidem Tartrate (Ambien) 5 mg QHS PRN PO .INSOMNIA; Start 03/24/19 at 09:00 Famotidine (Pepcid Iv) 20 mg Q12 IV Last administered on 03/24/19at 20:22; Admin Dose 20 MG; Start 03/24/19 at 09:00 Enoxaparin Sodium (Lovenox) 40 mg DAILY SC Last administered on 03/24/19at 09:08; Admin Dose 40 MG; Start 03/24/19 at 09:00 Aspirin (Halfprin) 81 mg DAILY PO ; Start 03/25/19 at 09:00 Allergies: Coded Allergies: No Known Allergy (Unverified , 10/17/18) Social History Smoking Status: Never smoker Exam/Review of Systems Vital Signs Vitals Vital Signs Date Temp Pulse Resp B/P (MAP) Pulse Ox O2 O2 Flow FiO2 Time Delivery Rate 03/25/19 98.3 62 18 137/76 100 Nasal 2.0 07:09 (96) Cannula Exam Constitutional: alert, oriented Psych: no complaints, nl mood/affect Head: normocephalic, atraumatic Neck: supple; No jvd Respiratory: clear to auscultation; No crackles/rales Cardiovascular: regular rate and rhythm; No edema Gastrointestinal: soft, non-tender Neurological: nl mental status, nl speech Labs Result Diagram: 03/25/1917 03/25/19 0617 Results 24hrs Laboratory Tests Test 03/24/19 13:20 03/25/19 06:17 Creatine Kinase 70 Creatine Kinase Index 0.8 Creatinine Kinase MB (Mass) 0.57 Troponin I < 0.012 < 0.012 White Blood Count 4.3 #L Red Blood Count 4.37 Hemoglobin 13.4 Hematocrit 40.9 Mean Corpuscular Volume 93.6 Mean Corpuscular Hemoglobin 30.7 Mean Corpuscular Hemoglobin Concent 32.8 Red Cell Distribution Width 13.7 Platelet Count 69 L Mean Platelet Volume 10.9 H Immature Granulocytes % 0.500 H Neutrophils % 51.3 Lymphocytes % 38.5 Monocytes % 7.1 Eosinophils % 2.1 Basophils % 0.5 Nucleated Red Blood Cells % 0.0 Immature Granulocytes # 0.020 Neutrophils # 2.2 Lymphocytes # 1.7 Monocytes # 0.3 Eosinophils # 0.1 Basophils # 0.0 Nucleated Red Blood Cells # 0.0 Sodium Level 139 Potassium Level 3.9 Chloride Level 107 Carbon Dioxide Level 27 Anion Gap 5 Blood Urea Nitrogen 17 Creatinine 0.55 Est Glomerular Filtrat Rate mL/min > 60 Glucose Level 117 Hemoglobin A1c 6.5 H Calcium Level 8.8 Phosphorus Level 5.0 H Magnesium Level 1.8 Total Bilirubin 1.0 Direct Bilirubin 0.00 Indirect Bilirubin 1.0 Aspartate Amino Transf (AST/SGOT) 69 H Alanine Aminotransferase (ALT/SGPT) 56 Alkaline Phosphatase 84 Total Protein 7.7 Albumin 3.6 Globulin 4.10 H Albumin/Globulin Ratio 0.87 Triglycerides Level 135 Cholesterol Level 158 LDL Cholesterol, Calculated 82 HDL Cholesterol 49 Cholesterol/HDL Ratio 3.2 Thyroid Stimulating Hormone (TSH) 6.250 H Medications Medications Current Medications Nitroglycerin (Nitroglycerin (Sl Tab) 0.4 Mg) 1 tab Q5M UP TO 3 DOSES PRN SL .CHEST PAIN Last administered on 03/24/19at 19:57; Admin Dose 1 TAB; Start 03/24/19 at 07:30 IV Flush (NS 3 ml) 3 ml PER PROTOCOL IV ; Start 03/24/19 at 09:00 Ondansetron HCl (Zofran Inj) 4 mg Q6H PRN IV NAUSEA/VOMITING; Start 03/24/19 at 09:00 Acetaminophen (Tylenol Tab) 650 mg Q6H PRN PO .PAIN 1-3 OR TEMP Last administered on 03/24/19at 19:58; Admin Dose 650 MG; Start 03/24/19 at 09:00 Acetaminophen/ Hydrocodone Bitart ([place] (5/325)) 1 tab Q6H PRN PO .MOD PAIN 4- 6; Start 03/24/19 at 09:00 Morphine Sulfate (morphine) 2 mg Q4H PRN IV .SEVERE PAIN 7-10 Last administered on 03/25/19at 01:51; Admin Dose 2 MG; Start 03/24/19 at 09:00 Docusate Sodium (Colace) 100 mg Q12H PRN PO .CONSTIPATION; Start 03/24/19 at 09:00 Bisacodyl (Dulcolax) 5 mg DAILY PRN PO .CONSTIPATION; Start 03/24/19 at 09:00 Zolpidem Tartrate (Ambien) 5 mg QHS PRN PO .INSOMNIA; Start 03/24/19 at 09:00 Famotidine (Pepcid Iv) 20 mg Q12 IV Last administered on 03/24/19at 20:22; Admin Dose 20 MG; Start 03/24/19 at 09:00 Enoxaparin Sodium (Lovenox) 40 mg DAILY SC Last administered on 03/24/19at 09:08; Admin Dose 40 MG; Start 03/24/19 at 09:00 Aspirin (Halfprin) 81 mg DAILY PO ; Start 03/25/19 at 09:00 MARSHA ALVAREZ Mar 25, 2019 10:14
[2019-03-25] MEDS ORDERED: AMLODIPINE 5 MG TAB PO SCH (10:30)
[2019-03-25 11:15] VITALS: BP 154/78; PULSE 64; RESP 18
[2019-03-25] MEDS: FAMOTIDINE 20 MG INJ IV SCH (13:14)
[2019-03-25] MEDS: ENOXAPARIN 40 MG/0.4 ML SYG SC SCH (13:22)
[2019-03-25 15:06] VITALS: BP 149/82; PULSE 63; RESP 18
--- NOTE | 2019-03-25 16:28 | DS ---
Date/Time of Note Date/Time of Note DATE: 03/25/19 TIME: 16:23 Discharge Summary Admission/Discharge Info Admit Date/Time Mar 24, 2019 at 10:12 Discharge Date/Time Patient Condition: Stable Consults Dr Barcenas Procedures Chest x-rayno acute process Venous ultrasound bilateral lower extremitiesno acute process Labs A1c 6.5. A little high Cardiac stress test/ Lexiscan IMPRESSION: 1. No evidence of new perfusion defects. 2. No new wall motion abnormalities. 3. The left ventricle ejection fraction at stress is 65% (prior EF was 70%). Hx of Present Illness 63-year-old female who lives at home was in her usual state of health and had an insidious onset of chest pain at rest. Stated symptoms of numbness of her left fingers/arm. No known aggravating or relieving factors. The pain may have lasted for a few hours. Denies any chest wall injury recent travel or fever. They have had similar pain many years ago. Stress test negative about 3 4 years ago. Cardiac risk factors: Diabetes hypertension metabolic syndrome history of stress test. Possible abnormal EKG ER: Stable vital signs, concern for generalized T wave changes, possibly relieved with nitro and aspirin. Hospital Course Evaluated and managed for acute coronary syndrome. Ruled out for ACS by enzymes EKG symptoms. Chest x-ray without any acute intrathoracic process. Stress test unremarkable. Continue risk factor modification due to diabetes etc. We will start her on an JACLYN inhibitor. Stable for for discharge. She does have some tenderness in the left lower chest. differential includes cervical radiculopathy. May be worked up as an outpatient. Assessment and plan 1. Chest pain abn EKG ruled out ACS. stAble, discharge 2. Chronic type 2 diabetes 3. Chronic essential hypertension 4. Obesity disorder/metabolic syndrome 5. Possible early cirrhosis/[place] related 6. Possible history of arrhythmia 7. Subclinical hypothyroidism 8. STEPHANIE risk consider outpatient testing Home Meds Active Scripts Ondansetron Hcl* (Zofran*) 4 Mg Tablet, 4 MG PO Q8H PRN for NAUSEA AND/OR VOMITING, #30 TAB Prov:CELIA HOLLAND MD 12/09/18 Ibuprofen* (Motrin*) 600 Mg Tab, 600 MG PO Q8 PRN for PAIN AND/OR INFLAMMATION, #30 TAB Prov:CELIA HOLLAND MD 12/09/18 Dicyclomine HCl (Dicyclomine HCl) 10 Mg Capsule, 20 MG PO TID PRN for ABDOMINAL CRAMPING, #20 CAP Prov:JOHAN PIMENTEL DO 10/17/18 Reported Medications Liothyronine Sodium* (Cytomel*) 5 Mcg Tablet, 10 MCG PO DAILY, TAB 03/24/19 Aspirin (Aspir-Low) 81 Mg Tablet.dr, 81 MG PO DAILY 03/24/19 Glimepiride* (Glimepiride*) 4 Mg Tablet, 4 MG PO BID, TAB 03/24/19 Potassium Chloride* (Potassium Chloride*) 20 Meq Tablet.er, 20 MEQ PO DAILY, TAB.SA 03/24/19 Amlodipine Besylate* (Norvasc*) 5 Mg Tablet, 5 MG PO DAILY, TAB 10/17/18 Propranolol Hcl* (Propranolol Hcl*) 20 Mg Tablet, 20 MG PO BID, TAB 10/17/18 Discontinued Reported Medications Glimepiride* (Glimepiride*) 2 Mg Tablet, 2 MG PO WITH BREAKFAST, TAB 10/17/18 Discontinued Scripts Hydrocodone/Acetaminophen ([place] 10-325 Tablet) 1 Each Tablet, 1 TAB PO Q6H PRN for PAIN, #9 TAB Prov:JOHAN PIMENTEL DO 10/17/18 Primary Care Provider Not On Staff Doctor Time spent on discharge: > 30 minutes Pending Labs Laboratory Tests Test 03/25/19 06:17 White Blood Count 4.3 10^3/ul (4.8-10.8) Red Blood Count 4.37 10^6/ul (4.20-5.40) Hemoglobin 13.4 g/dl (12.0-16.0) Hematocrit 40.9 % (37.0-47.0) Mean Corpuscular Volume 93.6 fl (82.0-101.0) Mean Corpuscular Hemoglobin 30.7 pg (29.0-33.0) Mean Corpuscular Hemoglobin Concent 32.8 g/dl (32.0-37.0) Red Cell Distribution Width 13.7 % (11.5-14.5) Platelet Count 69 10^3/UL (140-415) Mean Platelet Volume 10.9 fl (7.4-10.4) Immature Granulocytes % 0.500 % (0.001-0.429) Neutrophils % 51.3 % (39.0-77.0) Lymphocytes % 38.5 % (15.0-51.0) Monocytes % 7.1 % (0.0-11.0) Eosinophils % 2.1 % (0.0-7.0) Basophils % 0.5 % (0.0-2.0) Nucleated Red Blood Cells % 0.0 /100WBC (0.0-0.0) Immature Granulocytes # 0.020 10^3/ul (0.0-0.031) Neutrophils # 2.2 10^3/ul (1.6-7.5) Lymphocytes # 1.7 10^3/ul (0.8-2.9) Monocytes # 0.3 10^3/ul (0.3-0.9) Eosinophils # 0.1 10^3/ul (0.0-0.5) Basophils # 0.0 10^3/ul (0.0-0.1) Nucleated Red Blood Cells # 0.0 10^3/ul (0.0-0.0) Sodium Level 139 mmol/L (135-144) Potassium Level 3.9 mmol/L (3.5-5.1) Chloride Level 107 mmol/L (97-110) Carbon Dioxide Level 27 mmol/L (21-31) Anion Gap 5 (5-13) Blood Urea Nitrogen 17 mg/dl (7-20) Creatinine 0.55 mg/dl (0.44-1.00) Est Glomerular Filtrat Rate mL/min > 60 mL/min (>60) Glucose Level 117 mg/dl (70-220) Hemoglobin A1c 6.5 % (0-5.9) Calcium Level 8.8 mg/dl (8.4-10.2) Phosphorus Level 5.0 mg/dl (2.5-4.9) Magnesium Level 1.8 mg/dl (1.7-2.5) Total Bilirubin 1.0 mg/dl (0.2-1.3) Direct Bilirubin 0.00 mg/dl (0.00-0.20) Indirect Bilirubin 1.0 mg/dl (0-1.1) Aspartate Amino Transf (AST/SGOT) 69 IU/L (15-46) Alanine Aminotransferase (ALT/SGPT) 56 IU/L (13-69) Alkaline Phosphatase 84 IU/L (42-121) Troponin I < 0.012 ng/ml (0.000-0.120) Total Protein 7.7 g/dl (6.1-8.1) Albumin 3.6 g/dl (3.3-4.9) Globulin 4.10 g/dl (1.3-3.2) Albumin/Globulin Ratio 0.87 Triglycerides Level 135 mg/dl (0-149) Cholesterol Level 158 mg/dl (100-200) LDL Cholesterol, Calculated 82 mg/dl HDL Cholesterol 49 mg/dl (35-98) Cholesterol/HDL Ratio 3.2 RATIO Thyroid Stimulating Hormone (TSH) 6.250 MIU/L (0.465-4.680) NIR AVILES MD Mar 25, 2019 16:28
--- NOTE | 2019-03-25 16:29 | PDOCDIS ---
Discharge Instructions CONDITION [id number] Patient Condition: [id number] Stable HOME CARE INSTRUCTIONS: [id number] Diet Instructions: [id number] Activity Restrictions: [id number] Slowly Increase Activity Avoid heavy lifting FOLLOW UP/APPOINTMENTS Follow-up Plan appt primary 1wk ask primary care office to obtain discharge summary from medical records [phone] NIR AVILES MD Mar 25, 2019 16:29
--- NOTE | 2019-03-25 20:23 | RADRPT ---
Echocardiogram Report Patient Name: GRADY LEIGHPatient ID: [id number] : 1955 (64y )Study Date: 03/25/2019 2:49:54 PM Gender: FAccession #: [id number] Tech: LE Location: [facility] Ref.Physician: GALDINO BARCENAS Height(Cm): BSA: Weight(Kg): Quality: GoodOrder Physician: GALDINO BARCENAS Account #: Procedures: Echocardiographic Report: Transthoracic echocardiogram with complete 2D, M-Mode, and doppler examination. Indications: Abnormal EKG, and Chest Pain. Measurements: 2D/M Mode Doppler Measurement Value Normal Range Measurement Value Normal Range LVIDd 2D 4.7 [ 3.8 - 5.2 ] cm AV Mean Felice 1.0 [ 70.0 - 90.0 ] cm/sec LVIDs 2D 3.2 [ 2.2 - 3.5 ] cm AV Mean PG 5.0 [ 2.0 - 4.0 ] mmHg LVPWd 2D 1.3 [ 0.6 - 0.9 ] cm AV Peak Felice 1.6 [ 100.0 - 170.0 ] cm/sec IVSd 2D 1.3 [ 0.6 - 0.9 ] cm AV Peak PG 11.0 [ 2.0 - 9.0 ] mmHg EDV 2D 101.0 [ 46.0 - 106.0 ] ml AV VTI 30.7 cm ESV 2D 39.7 [ 14.0 - 42.0 ] ml LVOT Peak Felice 1.1 [ 70.0 - 110.0 ] cm/sec EF 2D 60.7 [ 54.0 - 74.0 ] percent LVOT Peak PG 5.0 [ 2.0 - 6.0 ] mmHg LVOT Diam 1.9 [ 2.1 - 2.5 ] cm MV E Peak Felice 1.0 [ 60.0 - 130.0 ] cm/sec MV A Peak Felice 0.6 [ 100.0 - 120.0 ] cm/sec MV E/A 1.7 [ 0.8 - 1.5 ] ratio MV Decel Time 239 [ 104 - 258 ] msec Lat E` Felice 0.1 [ 10.0 - 15.0 ] cm/sec Lateral E/E` 16.4 [ 1.0 - 2.0 ] ratio Med E` Felice 0.0 cm/sec MV E/A 1.7 [ 0.8 - 1.5 ] ratio TR Peak Felice 2.6 [ 100.0 - 280.0 ] cm/sec TR Peak PG 27.0 mmHg PV Peak Felice 0.7 [ 40.0 - 80.0 ] cm/sec PV Peak PG 2.0 mmHg Findings: Left Ventricle: Normal left ventricular systolic function. Normal left ventricular cavity size. Mild concentric left ventricular hypertrophy. Ejection fraction is visually estimated at 60 %. Tissue Doppler/Mitral Doppler indices are consistent with pseudonormalization with mildly elevated left atrial pressure (Stage II diastolic dysfunction). Right Ventricle: Normal right ventricular size. Normal right ventricular systolic function. Left Atrium: There is moderate enlargement of left atrium. Right Atrium: There is mild enlargement of right atrium. Mitral Valve: Normal appearance and function of the mitral valve with trace physiologic regurgitation. Aortic Valve: Normal appearance of the aortic valve. No significant aortic stenosis or insufficiency. Tricuspid Valve: Normal appearance of the tricuspid valve. The estimated Peak RVSP is 30 mmHg. There is mild tricuspid regurgitation. Pulmonic Valve: Pulmonic valve not well visualized. Pericardium: Normal pericardium with no significant pericardial effusion. Aorta: Normal aortic root. IVC: The IVC is not well visualized. Conclusions: Normal left ventricular systolic function. Normal left ventricular cavity size. Mild concentric left ventricular hypertrophy. Ejection fraction is visually estimated at 60 %. Tissue Doppler/Mitral Doppler indices are consistent with pseudonormalization with mildly elevated left atrial pressure (Stage II diastolic dysfunction). No significant valvular stenosis or regurgitation seen. The estimated Peak RVSP is 30 mmHg. Electronically Signed By: Galdino Barcenas 2019-03-25 20:23:02 PDT
[2019-03-25] MEDS ORDERED: ATORVASTATIN 20 MG TAB PO SCH (21:00)
== END 2019-03-25 19:20 | disposition home or self-care (01) ==
LOC: E/R 06:56 → TEL 10:12
PROVIDERS: ADMIT Internal Medicine; ATTEND Internal Medicine
DX: R07.9 Chest pain, unspecified (principal); I10 Essential (primary) hypertension; E11.9 Type 2 diabetes mellitus without complications; E66.9 Obesity, unspecified; Z68.38 Body mass index [BMI] 38.0-38.9, adult
CPT/HCPCS: 36415; 71045; 78452; 80053; 80061; 82550; 82553; 83036; 83690; 83735; 84100; 84443; 84484; 85025; 85610; 93005; 93017; 93306; 93970; 99285; A9500; A9505; G0378; J1650; J2270; J2785